=== PATIENT | male | born 1975 ===

== ENCOUNTER 2021-05-24 20:23 | Emergency (ER) | payer SELFPAY ==
[~2021-05-24] VITALS: Ht 182.9 cm; Wt 95.0 kg
[2021-05-24 20:55] VITALS: BP 143/87
[2021-05-24] MEDS ORDERED: CYCL10TA19 PO (21:44)
[2021-05-24] MEDS ORDERED: METH4TAB2 PO (21:44)
[2021-05-24] MEDS ORDERED: NAPR-514 PO (21:44)
--- NOTE | 2021-05-24 21:44 | PHYS DOC ---
Past Medical History Past Surgical History: Other Additional Past Surgical Histo: R leg (TOM GUTIERREZ [employer]) General Adult EDM: Chief Complaint: OTHER COMPLAINTS HPI: HPI: Patient is a 46 year old male with no significant medical history presented to the ED today complaining of 8 out of 10 intermittent coccyx pain, symptoms began a week ago. Patient states he was sledding and hit his coccyx on a tree stump. He states he is able to walk. Denies any pain radiating to bilateral lower e xtremities, denies any loss of bowel/bladder function. Describes the pain as burning. Denies anything specifically relieving the pain though he states he has not tried anything (TOM GUTIERREZ [employer]) Review of Systems: Review of Systems: Constitutional: Denies fever or chills. [] GI: Denies abdominal pain, nausea, vomiting, bloody stools or diarrhea. [] : Denies dysuria. [] Musculoskeletal: Reports coccyx pain Integument: Denies rash. [] Neurologic: Denies headache, focal weakness or sensory changes. [] Psychiatric: Denies depression or anxiety. [] (TOM GUTIERREZ [employer]) Heart Score: C/O Chest Pain: N/A Risk Factors: Risk Factors: DM, Current or recent (<one month) smoker, HTN, HLP, family history of CAD, obesity. Risk Scores: Score 0 - 3: 2.5% MACE over next 6 weeks - Discharge Home Score 4 - 6: 20.3% MACE over next 6 weeks - Admit for Clinical Observation Score 7 - 10: 72.7% MACE over next 6 weeks - Early Invasive Strategies (TOM GUTIERREZ [employer]) Physical Exam: PE: Constitutional: Well developed, well nourished, no acute distress, non-toxic appearance. [] Skin: Warm, dry, no erythema, no rash. [] Back: Tenderness on palpation of the coccyx, no CVA tenderness. [] Extremities: No tenderness, no cyanosis, no clubbing, ROM intact, no edema. [] Neurologic: Alert and oriented X 3, normal motor function, normal sensory functi on, no focal deficits noted. [] Psychologic: Affect normal, judgement normal, mood normal. [] (TOM GUTIERREZ [employer]) Current Patient Data: Vital Signs: Vital Signs Date Time Temp Pulse Resp B/P (MAP) Pulse Ox O2 Delivery O2 Flow Rate FiO2 05/24/21 20:55 98.7 79 18 143/87 (105) 99 Room Air 98.7 (TOM GUTIERREZ [employer]) EKG: EKG: [] (TOM GUTIERREZ MICHAELA) Radiology/Procedures: Radiology/Procedures: [] (TOM GUTIERREZ MICHAELA) Course & Med Decision Making: Course & Med Decision Making Pertinent Labs and Imaging studies reviewed. (See chart for details) This a 46-year-old male patient presenting to the ED today complaining of coccyx pain that began a week ago after hitting a tree stump sledding. Patient was discharged home. Provided prescription for naproxen, Flexeril and Medrol Dosepak. Provided return precautions. Discharged in stable condition (TOM GUTIERREZ MICHAELA) Course & Med Decision Making Patients Care and treatment plan provided by ER Nurse Practitioner. I was available for consult. Patient's chart reviewed. (SUKH MARTINEZ DO) Vinod Disclaimer: Vinod Disclaimer: This electronic medical record was generated, in whole or in part, using a voice recognition dictation system. (TOM GUTIERREZ MICHAELA) Departure Departure Impression: Primary Impression: Coccyx contusion Qualified Codes: S30.0XXA - Contusion of lower back and pelvis, initial encounter Disposition: HOME / SELF CARE / HOMELESS Condition: STABLE Referrals: NO PCP (PCP) follow up with your doctor in 1-2 weeks Patient Instructions: Contusion, [id number] Additional Instructions: You were evaluated in the emergency room for coccyx contusion. Take the prescribed medications as ordered. Follow-up with your own doctor in 1 to 2 weeks, come back to the ED at any point symptoms worsen Scripts Methylprednisolone (MEDROL) 4 Mg Tab.ds.pk 1 PKG PO UD, #1 PKG Prov: TOM GUTIERREZ MICHAELA 05/24/21 Cyclobenzaprine Hcl (CYCLOBENZAPRINE HCL) 10 Mg Tablet 1 TAB PO TID, #30 TAB Prov: TOM GUTIERREZ MICHAELA 05/24/21 Naproxen (NAPROXEN) 500 Mg Tablet 1 TAB PO BID for pain, #14 TAB 0 Refills Prov: TOM GUTIERREZ MICHAELA 05/24/21 TOM GUTIERREZ APRN May 24, 2021 21:44 SUKH MARTINEZ DO May 26, 2021 03:51
== END 2021-05-24 21:40 | disposition home or self-care (01) ==
LOC: ER 20:23
DX: S30.0XXA Contusion of lower back and pelvis, initial encounter (principal); W22.09XA Striking against other stationary object, initial encounter; Y93.89 Activity, other specified; Y92.89 Other specified places as the place of occurrence of the external cause; Y99.8 Other external cause status
CPT/HCPCS: 99283